=== PATIENT | female | born 1965 | race Caucasian/White ===

== ENCOUNTER → 2016-11-22 | Day surgery (SDC) | payer OTHER ==
[2016-11-22 07:18] LABS: HCT 39.5 % (37.0-47.0); HGB 13.2 g/dl (12.5-16.0); MCH 27.4 pg (25.0-31.0); MCHC 33.4 g/dL (32.0-36.0); MPV 9.6 fL (6.0-9.5); RBC 4.82 M/uL (4.20-5.40); RDW 13.3 % (11.5-14.0); WBC 6.5 K/uL (4.0-10.5)
== END | disposition home or self-care (01) ==
LOC: FAS 06:44
PROVIDERS: Legal Medicine
DX: M24.612 Ankylosis, left shoulder (principal); M75.02 Adhesive capsulitis of left shoulder; I10 Essential (primary) hypertension; K21.9 Gastro-esophageal reflux disease without esophagitis; E66.9 Obesity, unspecified; Z79.899 Other long term (current) drug therapy; Z90.710 Acquired absence of both cervix and uterus; Z98.890 Other specified postprocedural states; Z68.37 Body mass index [BMI] 37.0-37.9, adult
CPT/HCPCS: 36415; 97161; J1100; J2405; J2704; J2795; J3010